=== PATIENT | female | born 1990 | race Caucasian/White ===

== ENCOUNTER 2018-11-24 10:29 | Emergency (ER) | payer BC ==
[2018-11-24 10:30] VITALS: BMI 21.7
[2018-11-24 12:48] VITALS: BP 122/75; PULSE 85; RESP 19; TEMP 98; O2SAT 98
--- NOTE | 2018-11-24 12:51 | ED PDOC ---
Arrival/HPI - General Chief Complaint: Dental Pain Time Seen by Provider: 11/24/18 10:36 Historian: Patient - History of Present Illness Narrative History of Present Illness (Text): 11/24/18 12:54 28-year-old female presents today with left upper dental pain. Patient states dental pain started yesterday but she has been having some for a while now. Patient states she took some Motrin at home yesterday for pain. Patient states when she woke up today she had swelling to the left side of the face. She denies trismus or drooling. No medications have been taken for pain today. Patient denies fevers or chills. No headaches or dizziness. Patient states her dental insurance starts on Sunday so she has not seen a dentist for her dental fracture in the past due to lack of insurance. Past Medical History - Provider Review Nursing Documentation Reviewed: Yes - Travel History Have you recently traveled outside [place] w/in the past 3 mons?: No - Infectious Disease Hx of Infectious Diseases: None - Past Medical History Past Medical History: No Previous - Cardiac Hx Cardiac Disorders: No - Pulmonary Hx Respiratory Disorders: No - Neurological Hx Neurological Disorder: No - HEENT Hx HEENT Disorder: No - Renal Hx Renal Disorder: No - Endocrine/Metabolic Hx Endocrine Disorders: No - Hematological/Oncological Hx Blood Disorders: No - Integumentary Hx Dermatological Disorder: No - Musculoskeletal/Rheumatological Hx Musculoskeletal Disorders: No - Gastrointestinal Hx Gastrointestinal Disorders: No - Genitourinary/Gynecological Hx Genitourinary Disorders: No - Psychiatric Hx Psychophysiologic Disorder: No Hx Substance Use: No - Past Surgical History Past Surgical History: No Previous - Surgical History Hx Appendectomy: Yes - Anesthesia Hx Anesthesia: Yes Hx Anesthesia Reactions: No Hx Malignant Hyperthermia: No Family/Social History - Physician Review Nursing Documentation Reviewed: Yes Family/Social History: Unknown Family HX Smoking Status: Former Smoker Hx Alcohol Use: Yes Frequency of alcohol use: Socially Hx Substance Use: No Hx Substance Use Treatment: No Allergies/Home Meds Allergies/Adverse Reactions: Allergies No Known Allergies Allergy (Verified 11/24/18 10:47) Review of Systems - Review of Systems Constitutional: absent: Fatigue, Fevers ENT: Other (dental pain). absent: Sore Throat, Sinus Congestion Respiratory: absent: SOB, Cough Cardiovascular: absent: Chest Pain, Palpitations Gastrointestinal: absent: Abdominal Pain, Nausea, Vomiting Skin: absent: Rash, Pruritis Neurological: absent: Headache, Dizziness Psychiatric: absent: Anxiety, Depression Physical Exam Vital Signs Reviewed: Yes Vital Signs Temp Pulse Resp BP Pulse Ox 11/24/18 11:51 86 18 124/74 100 11/24/18 10:42 98.1 F 80 18 126/88 97 Temperature: Afebrile Blood Pressure: Normal Pulse: Regular Respiratory Rate: Normal Appearance: Positive for: Well-Appearing, Non-Toxic, Comfortable Pain Distress: None Mental Status: Positive for: Alert and Oriented X 3 - Systems Exam Head: Present: Atraumatic, Other (+ swelling noted to left cheek. ) Conjunctiva: Present: Normal Ears: Present: Normal, NORMAL TM Mouth: Present: Moist Mucous Membranes, Normal Lips, Normal Tounge. No: Drooling, Trismus, Normal Teeth (+ dental fracture #13 tooth; + surrounding erythema and tenderness ) Pharnyx: Present: Normal. No: ERYTHEMA, EXUDATE Nose (External): Present: Atraumatic Nose (Internal): Present: Normal Inspection Neck: Present: Normal Range of Motion, Trachea Midline. No: Lymphadenopathy Respiratory/Chest: Present: Clear to Auscultation, Good Air Exchange. No: Respiratory Distress, Accessory Muscle Use Cardiovascular: Present: Regular Rate and Rhythm, Normal S1, S2. No: Murmurs Upper Extremity: Present: Normal ROM Lower Extremity: Present: Normal ROM Neurological: Present: GCS=15, Speech Normal Skin: Present: Warm, Dry Psychiatric: Present: Alert, Oriented x 3 Medical Decision Making ED Course and Treatment: 11/24/18 12:48 Patient is nontoxic well-appearing in no distress with stable vital signs No trismus or drooling, moist mucous membranes Toradol and clindamycin given po Patient reassessment: Patient is feeling better after medications. I advised follow-up with the dentist within the next 2 days. I advised immediate return is symptoms worsen persist or if new concerning symptoms develop Patient verbalizes understanding of discharge instructions and need for imm ediate followup. Impression: Toothache Motrin every 6 hours as needed for pain Clindamycin 1 tablet 3 times daily 7 days Follow-up with the dentist within the next 2 days Follow up with the primary care physician within the next 2 days. Return immediately if symptoms worsen persist or if new concerning symptoms develop [facility] [address] [place], [place] [id number] [address] [place], [place] [phone] Reassessment Condition: Re-examined, Improved - Medication Orders Current Medication Orders: Discontinued Medications Clindamycin HCl (Cleocin) 300 mg PO STAT STA; Protocol Stop: 11/24/18 11:44 Last Admin: 11/24/18 11:50 Dose: 300 mg Ketorolac Tromethamine (Toradol) 60 mg IM STAT STA Stop: 11/24/18 11:43 Last Admin: 11/24/18 11:50 Dose: 60 mg MAR Pain Assessment Document 11/24/18 11:50 MIKE (Rec: 11/24/18 11:51 MIKE [id number]) Pain Reassessment Is this a pain reassessment? Yes Sleep Is patient sleeping during reassessment? No Presence of Pain Presence of Pain Yes Pain Scale Used Protocol: PSCALES Pain Scale Used Numeric Location Left, Right or Bilateral Left Upper or Lower Upper Pain Location Body Site Face Description Description Constant Intensity of Pain at present 9 Pain Behavior Rubbing Site Facial Grimacing Alleviating Factors/Management Relaxation Techniques Techniques Alleviating Factors Distraction IM Administration Charges Document 11/24/18 11:50 MIKE (Rec: 11/24/18 11:51 MIKE [id number]) Injection Site MAR Injection Site Left Gluteus Ernie Charges for Administration # of IM Administrations 1 Disposition/Present on Arrival - Present on Arrival Any Indicators Present on Arrival: No History of DVT/PE: No History of Uncontrolled Diabetes: No Urinary Catheter: No History of Decub. Ulcer: No History Surgical Site Infection Following: None - Disposition Have Diagnosis and Disposition been Completed?: Yes Diagnosis: Dental abscess, Toothache Disposition: HOME/ ROUTINE Disposition Time: 12:00 Patient Plan: Discharge Condition: GOOD Discharge Instructions (ExitCare): Dental Pain (DC), Tooth Abscess (DC) Additional Instructions: Motrin every 6 hours as needed for pain Clindamycin 1 tablet 3 times daily 7 days Follow-up with the dentist within the next 2 days Follow up with the primary care physician within the next 2 days. Return immediately if symptoms worsen persist or if new concerning symptoms develop [facility] [address] [place] [address] [address] [place], [place] [phone] Prescriptions: Clindamycin [Cleocin] 300 mg PO TID #21 cap Ibuprofen [Motrin] 600 mg PO Q6H PRN #20 tab PRN Reason: pain/fever reduction Referrals: Master Acosta DMD [Staff Provider] - Follow up with primary Korey Ponce DMD [Non-Staff] - Follow up with primary Allyson Emerson MD [Medical Doctor] - Follow up with primary [facility] [Outside] - Follow up with primary Forms: [employer] (Spanish), WORK NOTE
== END 2018-11-24 12:52 | disposition home or self-care (01) ==
LOC: ED 10:29
DX: K04.7 Periapical abscess without sinus (principal)
CPT/HCPCS: 81025; 96372; 99283; J1885